=== PATIENT | female | born 1985 | race Caucasian/White ===

== ENCOUNTER 2021-08-19 12:29 | Day surgery (SDC) | payer SELFPAY ==
[2021-08-19] MEDS ORDERED: hydrALAZINE 20 MG/ML VIAL SLOW IVP PRN (13:50)
[2021-08-19] MEDS ORDERED: Lactated Ringer's 1,000 ML IV SCH ×2 (14:00)
[2021-08-19] MEDS ORDERED: Doxylamine 25 MG TAB PO SCH (14:00)
[2021-08-19] MEDS ORDERED: pyridOXINE 50 MG (B6) TAB PO SCH (14:00)
[2021-08-19] MEDS ORDERED: Metoclopramide HCl 10 MG/2 ML VIAL IVP SCH (14:00)
[2021-08-19 14:26] LABS: Anion Gap 15 mmol/L (10-20); BUN (Urea Nitrogen) 8 mg/dL (7.0-18.7); Calc. Creatinine Clearance 0 mL/min (70-130); Calcium 8.8 mg/dL (7.8-10.44); Carbon Dioxide 22 mmol/L (22-29); Chloride 101 mmol/L (98-107); Glucose 81 mg/dL (70-105); Potassium 3.8 mmol/L (3.5-5.1); Sodium 134 mmol/L (136-145)
== END 2021-08-19 17:05 | disposition home or self-care (01) ==
LOC: CSHLD/OP 12:29
PROVIDERS: ATTEND Obstetrics & Gynecology
DX: O21.2 Late vomiting of pregnancy (principal); Z3A.29 29 weeks gestation of pregnancy; Z79.899 Other long term (current) drug therapy; Z88.1 Allergy status to other antibiotic agents
CPT/HCPCS: 80048; J2765

== ENCOUNTER 2021-10-29 08:53 | Outpatient (CLI) | payer SELFPAY ==
[2021-10-29 18:45] LABS: SARS-CoV-2 PCR by NAA Not Detected (NotDetected)
== END 2021-10-29 08:54 | disposition home or self-care (01) ==
LOC: CSHLAB 08:53
PROVIDERS: ATTEND Obstetrics & Gynecology
DX: Z20.822 Contact with and (suspected) exposure to COVID-19 (principal)
CPT/HCPCS: U0003; U0005

== ENCOUNTER 2021-11-03 05:30 | Inpatient (IN) | payer SELFPAY ==
[2021-11-03] MEDS ORDERED: Diphenoxylate HCl/Atropine Tablet PO PRN ×2 (06:24)
[2021-11-03] MEDS ORDERED: Misoprostol 200 MCG TAB PR PRN (06:24)
[2021-11-03] MEDS ORDERED: NS w/ Oxytocin 30 units 500 ML IV SCH ×2 (06:24)
[2021-11-03] MEDS ORDERED: Ibuprofen 800 MG TAB PO PRN (06:24)
[2021-11-03] MEDS ORDERED: Promethazine HCl 25 MG/ML VIAL IM PRN ×2 (06:24→09:03)
[2021-11-03] MEDS ORDERED: HYDROcodone/Acetaminophen 5/325 mg Tablet PO PRN ×2 (06:24)
[2021-11-03] MEDS ORDERED: Lidocaine 1% (PF) 30 ML VIAL SC PRN (06:24)
[2021-11-03] MEDS ORDERED: hydrALAZINE 20 MG/ML VIAL SLOW IVP PRN ×2 (06:24→12:43)
[2021-11-03] MEDS ORDERED: Ondansetron PF 4 MG/2 ML Vial IVP PRN ×2 (06:24→09:03)
[2021-11-03] MEDS ORDERED: Penicillin G Potassium 5 MILL.UNITS in Sodium Chloride 0.9% 100 ML IVPB SCH (06:24)
[2021-11-03] MEDS ORDERED: Carboprost 250 MCG/ML AMP IM PRN (06:24)
[2021-11-03] MEDS ORDERED: Fentanyl 100 MCG/2 ML VIAL SLOW IVP PRN (06:24)
[2021-11-03] MEDS ORDERED: Methylergonovine 0.2 MG/ML VIAL IM PRN (06:24)
[2021-11-03 06:26] VITALS: BMI 30.3
[2021-11-03] MEDS ORDERED: Fentanyl 2 mcg/Bup 0.1% Cadd 100 ML ONE (06:49)
[2021-11-03 06:53] LABS: Hemoglobin 11.1 g/dL (12.0-15.5); Mean Corpuscular HGB CONC 32.3 g/dL (32.0-36.0); Mean Corpuscular Hemoglobin 27.3 pg (27.0-33.0); Mean Corpuscular Volume 84.7 fl (81.6-98.3); Mean Platelet Volume 11.2 fl (7.4-10.4); Platelet Count 273 10x3/uL (150-450); RBC Distribution Width 13.1 % (11.5-14.5); Red Blood Cell (RBC) Count 4.06 10x6/uL (3.90-5.03); White Blood Cell (WBC) Count 8.5 10x3/uL (3.5-10.5)
[2021-11-03 07:36] LABS: Syphilis Antibody Nonreactive (Nonreactive); Syphilis Antibody Index 0.04 S/CO (<1.00 Non-Reactive)
[2021-11-03 07:38] LABS: Hep B Surf Ag Non-Reactive S/CO (NonReactive)
[2021-11-03 07:45] LABS: HBSAg Index 0.16 S/CO (0-0.99)
[2021-11-03] MEDS ORDERED: Naloxone HCl 0.4 mg/ml Vial IVP PRN ×2 (09:03)
[2021-11-03] MEDS ORDERED: Acetaminophen 325 MG TAB PO PRN (09:03)
[2021-11-03] MEDS ORDERED: Lactated Ringer's 500 ML IV PRN (09:03)
[2021-11-03] MEDS ORDERED: ePHEDrine Sulfate 50 MG/10 ML VIAL SLOW IVP PRN (09:03)
[2021-11-03] MEDS ORDERED: Hydrocerin (Eucerin) Cream 120 gm Jar TOP PRN (09:03)
[2021-11-03] MEDS ORDERED: diphenhydrAMINE 50 MG/ML VIAL IVP PRN (09:03)
[2021-11-03] MEDS ORDERED: Communication Order-Pharmacy FS SCH (09:15)
[2021-11-03] MEDS ORDERED: Fentanyl 2 mcg/Bupivacaine 0.1% Cassette 100 ML EPIDURAL SCH (09:15)
[2021-11-03] MEDS ORDERED: Penicillin G 2.5 MILL.units 2.5 MILL.UNITS in Premix Bag 1 BAG IVPB SCH (11:00)
[2021-11-03] MEDS ORDERED: Preparation H Ointment 28 GM TUBE PR PRN (12:43)
[2021-11-03] MEDS ORDERED: Lanolin Ointment 7 GM TUBE TOP PRN (12:43)
[2021-11-03] MEDS ORDERED: Benzocaine-Menthol 82.5 ML CAN TOP PRN (12:43)
[2021-11-03] MEDS ORDERED: Boostrix 0.5 ML (Tdap) VIAL IM ONE (12:43)
[2021-11-03] MEDS ORDERED: Milk Of Magnesia 30 ML UDCUP PO PRN (12:43)
[2021-11-03] MEDS ORDERED: Bisacodyl 10 MG SUPP PR PRN (12:43)
[2021-11-03] MEDS ORDERED: traMADol HCl 50 MG TAB PO PRN (12:43)
[2021-11-03] MEDS: Ibuprofen 800 MG TAB PO SCH ×2 (17:36)
[2021-11-03] MEDS: Docusate 100 MG CAP PO SCH (20:35)
[2021-11-04] MEDS: Ibuprofen 800 MG TAB PO SCH ×4 (00:07→15:31)
[2021-11-04] MEDS ORDERED: Prenatal Vitamin 1 TAB PO SCH (09:00)
[2021-11-04] MEDS: Docusate 100 MG CAP PO SCH (10:13)
[2021-11-04 18:37] VITALS: BP 120/61; TEMP 98.2
== END 2021-11-04 17:15 | disposition home or self-care (01) | DRG 807 ==
LOC: CSHLD 05:37 → CSHPP 15:13
PROVIDERS: ADMIT Obstetrics & Gynecology; ATTEND Obstetrics & Gynecology
PROC: 10E0XZZ Delivery of Products of Conception, External Approach (ICD-10-PCS; principal; 2021-11-03)
PROC: 10907ZC Drainage of Amniotic Fluid, Therapeutic from Products of Conception, Via Natural or Artificial Opening (ICD-10-PCS; 2021-11-03)
DX: O99.824 Streptococcus B carrier state complicating childbirth (principal); Z37.0 Single live birth; O70.0 First degree perineal laceration during delivery; Z3A.39 39 weeks gestation of pregnancy; Z88.8 Allergy status to other drugs, medicaments and biological substances; O69.81X0 Labor and delivery complicated by cord around neck, without compression, not applicable or unspecified
CPT/HCPCS: 36415; 51702; 85027; 86780; 86850; 86900; 86901; 87340; J2540; J2590; J3490